=== PATIENT | male | born 2000 | race Hispanic/Latino ===

== ENCOUNTER 2022-09-16 22:09 | Emergency (ER) | payer MEDICAID ==
[~2022-09-16] VITALS: Ht 182.9 cm; Wt 101.2 kg
[2022-09-16 22:19] VITALS: BP 129/79
[2022-09-16] MEDS ORDERED: IBUPROFEN 600 MG TABLET PO ONE (22:30)
[2022-09-16] MEDS ORDERED: IBUP-2070 PO (23:05)
[2022-09-16] MEDS ORDERED: CYCL10TA16 PO (23:05)
== END 2022-09-16 23:20 | disposition home or self-care (01) ==
LOC: EDH 22:09
DX: S86.911A Strain of unspecified muscle(s) and tendon(s) at lower leg level, right leg, initial encounter (principal); M76.51 Patellar tendinitis, right knee; Z79.1 Long term (current) use of non-steroidal anti-inflammatories (NSAID); X58.XXXA Exposure to other specified factors, initial encounter; Y93.89 Activity, other specified; Y92.89 Other specified places as the place of occurrence of the external cause; Y99.8 Other external cause status
CPT/HCPCS: 29505; 73552; 73562